=== PATIENT | male | born 1995 | race American Indian/Alaskan Native ===

== ENCOUNTER 2024-09-24 18:22 | Emergency (ER) | payer MEDICAID ==
[2024-09-24 18:54] LABS: HEMATOCRIT 51.3 % (38.4-49.7); MEAN CORPUSCULAR HEMOGLOBIN 33.8 pg (31.6-35.5); MEAN CORPUSCULAR HGB CONC 35.3 g/dL (31.6-35.5); MEAN CORPUSCULAR VOLUME 95.9 fL (81.4-99.0); RED BLOOD CELL COUNT 5.35 M/uL (4.14-5.76); WHITE BLOOD CELL COUNT,WBC 6.4 K/uL (3.2-11.0)
[2024-09-24 18:56] LABS: HEMOGLOBIN 18.1 g/dL (12.9-16.9)
[2024-09-24 19:05] LABS: AMPHETAMINES SCREEN, URINE NEGATIVE (NEGATIVE); BARBITURATE SCREEN,URINE NEGATIVE (NEGATIVE); BENZODIAZEPINES SCREEN,URINE PRESUMPTIVE POSITIVE (NEGATIVE); METHADONE SCREEN, URINE NEGATIVE (NEGATIVE); METHAMPHETAMINES SCREEN, URINE NEGATIVE (NEGATIVE); OXYCODONE SCREEN,URINE NEGATIVE (NEGATIVE); PROPOXYPHENE SCREEN,URINE NEGATIVE (NEGATIVE); THC SCREEN,URINE 50 NG/ML PRESUMPTIVE POSITIVE (NEGATIVE)
[2024-09-24 19:17] LABS: A/G RATIO 0.9 (1.2-2.2); ALANINE AMINOTRANSFERASE,ALT 67 U/L (12-78); ALBUMIN 3.8 g/dL (3.4-5.0); ALKALINE PHOSPHATASE 194 U/L (46-116); ANION GAP 16.1 mmol/L (5.0-14.0); ASPARTATE AMNIOTRANSFERASE,AST 125 U/L (15-37); BLOOD UREA NITROGEN,BUN 6 mg/dL (7-18); CALCIUM 8.6 mg/dL (8.5-10.1); CARBON DIOXIDE,CO2 27 mmol/L (21-32); CHLORIDE,CL 107 mmol/L (100-108); CREATININE 0.8 mg/dL (0.8-1.3); EST CRCL DRUG DOSING (CG) 126.23 mL/min; ESTIMATED GFR 122 mL/min (>60); GLUCOSE RANDOM 110 mg/dL (74-106); POTASSIUM,K 3.1 mmol/L (3.6-5.2); SODIUM,NA 147 mmol/L (140-148)
== END 2024-09-24 20:03 ==
LOC: JP.ED 18:22
DX: S05.12XA Contusion of eyeball and orbital tissues, left eye, initial encounter (principal); F10.129 Alcohol abuse with intoxication, unspecified; E86.0 Dehydration; Z79.899 Other long term (current) drug therapy; Y90.8 Blood alcohol level of 240 mg/100 ml or more; W07.XXXA Fall from chair, initial encounter
CPT/HCPCS: 36415; 80053; 80305-QW; 80307; 85027; 99284; 99285

== ENCOUNTER 2025-09-11 15:15 | Emergency (ER) | payer MEDICAID ==
[2025-09-11] MEDS ORDERED: Sodium Chloride 0.9% 10 ML Syringe FLUSH PRN (16:01)
[2025-09-11 16:10] LABS: BASOPHILS PERCENT AUTO 0.4 % (0.1-1.3); EOSINOPHILS PERCENT AUTO 0.7 % (0.0-5.4); IMMATURE GRAN PERCENT AUTO 0.4 % (0.0-0.7); LYMPHOCYTES ABSOLUTE AUTO 0.22 K/uL (0.8-3.3); LYMPHOCYTES PERCENT AUTO 7.8 % (11.4-47.7); MONOCYTES ABSOLUTE AUTO 0.11 K/uL (0.20-0.90); MONOCYTES PERCENT AUTO 3.9 % (3.3-12.6); NEUTROPHILS ABSOLUTE AUTO 2.44 K/uL (1.0-7.6); NEUTROPHILS PERCENT AUTO 86.8 % (40.0-78.1); RED BLOOD CELL COUNT 3.31 M/uL (4.14-5.76); WHITE BLOOD CELL COUNT,WBC 2.8 K/uL (3.2-11.0)
[2025-09-11 16:13] LABS: BASOPHILS ABSOLUTE AUTO 0.01 K/uL (0.00-0.10); EOSINOPHILS ABSOLUTE AUTO 0.02 K/uL (0.00-0.40); IMMATURE GRAN ABSOLUTE AUTO 0.01 K/uL (0.00-0.23); PLATELET COUNT,PLT 21 K/uL (130-375)
[2025-09-11 16:18] LABS: INR 1.8; PTT,PARTIAL THROMBOPLSTIN TIME 26.6 sec (21.8-27.3)
[2025-09-11 16:20] LABS: A/G RATIO 0.5 (1.2-2.2); ALANINE AMINOTRANSFERASE,ALT 36 U/L (12-78); ASPARTATE AMNIOTRANSFERASE,AST 116 U/L (15-37); BILIRUBIN TOTAL 8.7 mg/dL (0.2-1.0); BLOOD UREA NITROGEN,BUN 7 mg/dL (7-18); CARBON DIOXIDE,CO2 25 mmol/L (21-32); CHLORIDE,CL 103 mmol/L (100-108); CREATININE 0.7 mg/dL (0.8-1.3); EST CRCL DRUG DOSING (CG) 142.95 mL/min; ESTIMATED GFR 126 mL/min (>60); GLUCOSE RANDOM 109 mg/dL (74-106); POTASSIUM,K 3.2 mmol/L (3.6-5.2); PROTEIN TOTAL,TP 6.4 g/dL (6.4-8.2); SODIUM,NA 138 mmol/L (140-148)
[2025-09-11] MEDS: Sodium Chloride 0.9% 10 ML Syringe FLUSH ONE (16:32)
[2025-09-11] MEDS: Iopamidol 612 MG/ML 100 ML Bottle IV ONE (16:49)
== END 2025-09-11 20:10 ==
LOC: JP.ED 15:15
DX: K92.2 Gastrointestinal hemorrhage, unspecified (principal); F10.230 Alcohol dependence with withdrawal, uncomplicated; F17.200 Nicotine dependence, unspecified, uncomplicated; Z79.899 Other long term (current) drug therapy
CPT/HCPCS: 36415; 74177; 80053; 82140; 83605; 83690; 85025; 85610; 85730; 96360; 99285; J7030; Q9967